=== PATIENT | female | born 1995 | race Caucasian/White ===

== ENCOUNTER → 2019-04-02 08:53 | Outpatient (CLI) | payer OTHER, SELFPAY ==
[2019-04-02 08:49] VITALS: BMI 22.6
--- NOTE | 2019-04-02 08:59 | RAD_ITS ---
STUDY: X-RAY - PELVIS AND LEFT HIP REASON FOR EXAM: Female, 23 years old. Left hip pain. TECHNIQUE: 3 views of the pelvis and hip. COMPARISON: None. FINDINGS: There is a non-specific bowel gas pattern. Normal visualized soft tissue structures. Normal bilateral iliac wings, sacroiliac joints and visualized sacrum. Normal bilateral superior and inferior pubic rami. Normal pubic symphysis. Normal bilateral ischial tuberosities. Normal visualized femoral head. Normal acetabulum. Normal hip joint. RAD/HIP, UNI W/ Pelvis 2-3 Views IMPRESSION: Normal x-ray examination of the pelvis and hip. Electronically Signed: Zia Castro MD at 10:10 EDT , Service support ,
--- NOTE | 2019-04-02 09:08 | RAD_ITS ---
STUDY: X-RAY - LUMBOSACRAL SPINE REASON FOR EXAM: Female, 23 years old. Low back pain. TECHNIQUE: 6 view(s) of the lumbosacral spine including lateral flexion and extension views were obtained. COMPARISON: None FINDINGS: Normal lumbar lordosis. There is no substantial scoliosis. There is normal alignment of the vertebrae. There is normal flexion and extension with no abnormal motion Normal vertebral bodies and endplates. Normal disc space heights. Normal bilateral sacral ala, sacroiliac joints, and visualized sacrum. Normal visualized soft tissue structures. RAD/L/S Spine w Bend Min 6 Vw IMPRESSION: Normal x-ray examination of the lumbosacral spine. Electronically Signed: Zia Castro MD at 10:10 EDT , Service support ,
== END ==
PROVIDERS: Referring Provider Orthopaedic Surgery; Visit Provider Orthopaedic Surgery
DX: R20.0 Anesthesia of skin (principal); R52 Pain, unspecified
CPT/HCPCS: 72114; 73502; 73503

== ENCOUNTER 2019-05-23 08:30 | Outpatient (RCR) | payer OTHER, SELFPAY ==
[2019-04-02 08:49] VITALS: BMI 22.6
--- NOTE | 2019-04-17 11:19 | HP.PTEVAL_ITS ---
Patient's Visit Information REKHA SNOW is a 23 year old F referred to Physical Therapy by Michelle Guerrero DO with a diagnosis of LEFT HIP LABRAL TEAR/BACK PAIN. Date of Evaluation: 04/17/19 Physical Therapist: Ro Sierra PT, Cert MDT - Visit Plan Frequency: 2-3x /Week Duration: 4-6 Weeks Plan: VIDEO ANALYSIS WITH CORRECTIVE EX PRESCRIPTION. POSTURE CORRECTION/STRENGTHENING, INSTRUCTION IN APPROPRIATE BODY MECHANICS AND ACTIVITY MODIFICATIONS. DLS STARTING WITH A NEUTRAL SPINE PROGRESSING ROM TOLERATED. PRITI LE ROM, STRETCHING AND STRENGTHENING BASED ON VIDEO ANALYSIS INCLUDING HIP ROTATORS. - Subjective Findings: Work/Leisure: WORKING FOR [employer] ON THE [employer] COURSE - A LOT OF PHYSICAL ACTIVITY. [employer]. 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 Disability: NO. Present symptoms: LEFT HIP PAIN IN THE FRONT AND INTO THE GROIN. A LITTLE BIT ON THE OUTSIDE OF THE HIP. PRITI LBP LEFT > RIGHT. NOT REALLY HAVING ANY NUMBNESS OR TINGLING EXCEPT WITH EXTREME STRETCHING INTO BUTTERFLY AND PIRIFORMIS STRETCH. Present since: JANUARY 2019. Pain Scale: WORST 5/10, LEAST 1/10. Currently: 11/15. Commenced as a result of: AFTER A WORKOUT IT WAS SORE. RUNS CROSS [employer] AND [employer]. ABLE TO PUSH THROUGH AND RUN ENTIRE SEASON. Symptoms at onset: LEFT HIP. Worse: AFTER RUNNING. EXTREME STRETCHING, PROLONGED STANDING, PROLONGED WALKING, SITTING IN CERTAIN POSITIONS, SITTING [place] STYLE. Better: FOAM ROLLER. Disturbed sleep: NO. Previous history/Previous treatment: FOAM ROLLER, THERAPEUTIC CASE MANAGER EX'S BUT NOT HELPFUL. NO HIP OR BACK SURGERY. NO HIP OR BACK INJECTIONS. NOT ON PAIN MEDICATION. Coughing/sneezing/straining: NEGATIVE. Gait: NORMAL EXCEPT DISTANCE LIMITED DUE TO PAIN. Accidents: NO. Unexplained weight loss: NO. Imaging: LEFT HIP X-RAY - REPORTS DR. GUERRERO SAID SHE HAS A LABRAL TEAR. PMH: UNREMARKABLE. Recent major surgery: NO. PLOF (Prior Level of Function): UNLIMITED - Objective Sitting/Standing Posture: FAIR. Lordosis: NORMAL. Lateral shift: NO. Relevant shift: N/A. Active Correction of posture: NE. Other Observations: INDEP GAIT AND TRANSFERS. Motor deficit: PRITI LE'S 5/5 WITH MMT EXCEPT RIGHT HIP ROTATORS 4/5, LEFT HIP IR 4/5, ER 4-/5. Sensory deficit: NO. ROM deficit: PRITI LE ROM IS WFL WITH HIP IR AND ER ROM SIMILAR BUT MILD TIGHTNESS OF LEFT IR AND ER COMPARED TO RIGHT. Reflexes: NT. Dural Signs: POSSIBLY POSITIVE PRITI LE'S - FEELS PULLING IN LOW BACK. Lumbar mvmt loss: flex - NIL. ext - NIL. R SG - NIL. L SG - NIL. Core strength: GOOD. Palpation: TENDERNESS LEFT HIP LATERAL TO ASIS. - Goals Goal 1:: DECREASE C/O BACK AND LEFT HIP PAIN Goal Time Frame: 4-6 Weeks Goal 2:: IMPROVE SITTING, RUNNING AND RECREATIONAL FUNCTION Goal Time Frame: 4-6 Weeks Goal 3:: INDEP HEP FOR CONTINUED IMPROVEMENT ONCE FORMAL PHYSICAL THERAPY CONCLUDES. - Rehabilitation Potential Rehabilitation Potential: Good - Anticipated Interventions Patient/Client Instruction: Educate patient on: Condition, Plan of Care, Risk Factors, Benefits of Fitness Program For the Purpose of:: To improve self management Therapeutic Exercise to Include: Strength training, Body mechanics, Postural training, Flexibilty training, Dynamic Lumbar Stabilization Comment: VIDEO ANALYSIS INCLUDING RUNNING. For the Purpose of:: To decrease pain, To improve muscle performance and motor function, To increase tolerance to activity/condition/position, To improve ability of physical actions for home/community/work/leisure, To improve self management Thank you for the opportunity to evaluate your patient. For Medicare and Medicare HMO plans, please review the plan of care and approve it. It will need to be FAXED BACK to us at [phone] for Medicare purposes. For Medicare only, by signing this I certify the plan of care. Please let me know if there are questions or concerns regarding this plan of care. Physician Signature: Dat e:
--- NOTE | 2019-05-23 09:44 | HP.PTDCSUM ---
HP - PT D/C Summary It has been my pleasure to treat REKHA SNOW under orders from Michelle Guerrero DO, for the diagnosis of LEFT HIP LABRAL TEAR/BACK PAIN for a total of 9 visit(s). Discharge Date: Please see the following information for a summary of their discharge status. - Subjective Subjective: PATIENT REPORTS SHE IS 90 TO 95% BETTER. STATES SHE KNOWS HER EX'S AND THINKS SHE CAN CONTINUE ON HER OWN NOW WITH WHAT SHE HAS LEARNED. REPORTS SHE ONLY GETS MILD INTERMITTENT PAIN NOW. - Pain Left Hip Pain Intensity (Out of 10): 0 - Overall Improvement % Improvement: 90 - Objective Objective/Function: ALL GOALS MET. PATIENT HAS PROGRESSED VERY WELL WITH PT HOWEVER SHE DOES STILL HAVE LEFT HIP INTERMITTENT PAIN LOCALIZED TO THE FRONT OF HER HIP AND SHE STILL HAS MILD LEFT HIP TIGHTNESS AND WEAKNESS COMPARED TO THE RIGHT. SHE IS INDEP WITH A HEP AND WE ARE HOPEFUL SHE WILL CONTINUE TO IMPROVE. WEAKNESS: LEFT HIP IR 4/5, ER 4/5 WITH MMT'ING. - Goals Goal 1:: DECREASE C/O BACK AND LEFT HIP PAIN Goal Progress: Goal Met Goal 2:: IMPROVE SITTING, RUNNING AND RECREATIONAL FUNCTION Goal Progress: Goal Met Goal 3:: INDEP HEP FOR CONTINUED IMPROVEMENT ONCE FORMAL PHYSICAL THERAPY CONCLUDES. Goal Progress: Goal Met - Plan Plan: Re-assess tomorrow at 830 am with Ro Sierra PT. - D/C Information If there are questions or concerns regarding this patient's physical therapy, please feel free to call me at [phone]. Thank you for the referral of this patient. Sincerely, Ro Sierra, PT, Cert MDT
== END 2019-05-23 19:00 | disposition home or self-care (01) ==
LOC: PT 08:30
PROVIDERS: Family Provider Family Medicine; PCP Family Medicine; Referring Provider Orthopaedic Surgery; Visit Provider Orthopaedic Surgery
DX: S73.102D Unspecified sprain of left hip, subsequent encounter (principal)
CPT/HCPCS: 97110; 97161; 97530

== ENCOUNTER → 2019-10-31 09:26 | Outpatient (CLI) | payer OTHER, SELFPAY ==
[2019-10-31 09:03] VITALS: BMI 22.6
[2019-10-31 09:57] LABS: Absolute Lymphocyte Count 1.74 X10^3/uL (0.83-4.51); Absolute Neutrophil Count 2.8 X10^3/uL (2.0-7.7); Basophil# 0.05 X10^3/uL; Basophil% 0.9 % (0-1); Eosinophil# 0.34 X10^3/uL; Eosinophils% 6.2 % (0-5); Hematocrit 44.5 % (37-47); Hemoglobin 15.2 g/dL (12.0-15.0); Lymphocyte # 1.74 X10^3/ul (4.0); Lymphocyte % 31.6 % (19-41); Mean Corp Hgb Conc 34.2 g/dL (32-36); Mean Corpuscular Hgb 32.3 pg (27.0-32.0); Mean Corpuscular Volume 94.5 fL (81-99); Mean Platelet Vol. 9.6 fl (6.2-12.0); Monocyte# 0.53 X10^3/uL; Monocyte% 9.6 % (0-10); NRBC Flagged by Analyzer 0 % (0-5); Neutrophil % 50.8 % (47-70); Platelet Count 295 K/mm3 (150-450); RBC Distribution Width CV 11.9 % (11.6-14.6); RBC Distribution Width SD 41.1 fl (35.1-43.9); Red Blood Count 4.71 M/mm3 (4.2-5.4); White Blood Count 5.5 K/mm3 (4.4-11.0)
[2019-10-31 10:28] LABS: Thyroid Stim Hormone (TSH) 1.17 uIU/mL (0.358-3.74)
[2019-10-31 18:48] LABS: Chlamydia Trachomatis by PCR Negative (Negative); Neisserai gonorrhoeae by PCR Negative (Negative); Probe Check PASS; Sample Adequacy Control PASS; Specimen Processing Control PASS
[2019-11-04 20:22] LABS: HPV Reflexed? NOT INDICATED
== END ==
PROVIDERS: Family Provider Family Medicine; PCP Family Medicine; Referring Provider Nurse Practitioner Women's Health; Visit Provider Nurse Practitioner Women's Health
DX: N92.1 Excessive and frequent menstruation with irregular cycle (principal); A64 Unspecified sexually transmitted disease; Z12.4 Encounter for screening for malignant neoplasm of cervix
CPT/HCPCS: 36415; 84443; 85025; 87491; 87591; 88175; G0145

== ENCOUNTER → 2022-08-01 | Outpatient (CLI) | payer OTHER, SELFPAY ==
[2022-08-11 13:46] LABS: HPV Reflexed? NOT INDICATED
== END | disposition home or self-care (01) ==
LOC: LABSPEC 13:08
PROVIDERS: PCP Family Medicine; Visit Provider Obstetrics & Gynecology
DX: Z12.4 Encounter for screening for malignant neoplasm of cervix (principal)
CPT/HCPCS: 88175; G0145

== ENCOUNTER → 2023-08-03 | Outpatient (CLI) | payer OTHER, SELFPAY ==
[2023-08-08 00:06] LABS: Chlamydia By Nucleic Acid AMP Negative (Negative); Gonococcus By Nucleic Acid AMP Negative (Negative)
== END | disposition home or self-care (01) ==
PROVIDERS: PCP Family Medicine; Visit Provider Obstetrics & Gynecology
DX: Z11.3 Encounter for screening for infections with a predominantly sexual mode of transmission (principal)
CPT/HCPCS: 87491; 87591